=== PATIENT | male | born 1955 | race Hispanic/Latino ===

== ENCOUNTER → 2025-02-19 | Outpatient (CLI) | payer OTHER ==
--- NOTE | 2025-02-19 10:06 | EKG ---
[facility] Test Date: 2025-02-19 Test Time: 09:21:42 Pat Name: LIZZY BUTT Department: LAB Room: Gender: M Supervisor Roving: [id number] : 1955 Requested By: NINA SANTIAGO Order Number: [id number] Reading MD: Stephanie Reed Measurements Intervals [place] Rate: 79 P: 51 LA: 124 QRS: 22 QRSD: 77 T: 30 QT: 347 QTc: 398 Interpretive Statements Sinus rhythm No previous ECG available for comparison Electronically Signed On 02-20-2025 08:25:51 CDT by Stephanie Reed Please click the below link to view image of tracing.
== END | disposition home or self-care (01) ==
LOC: LAB 08:58
PROVIDERS: ATTEND Family Medicine
DX: I10 Essential (primary) hypertension (principal)
CPT/HCPCS: 93005